=== PATIENT | female | born 1945 | race Caucasian/White ===

== ENCOUNTER 2017-11-19 13:40 | Inpatient (IN) | payer OTHER, MEDICARE ==
[2017-11-19] MEDS ORDERED: MAGNESIUM SULF 50% (8.12 MEQ/2 ML-1 GM VIAL) IVPB ONE (15:06)
[2017-11-19] MEDS ORDERED: SODIUM CHLORIDE 0.9% 1000 ML INFUS.BAG IV ONE (15:06)
[2017-11-19] MEDS ORDERED: METOCLOPRAMIDE HCL INJECTION 10 MG/2 ML VIAL IVPB ONE (15:07)
--- NOTE | 2017-11-19 15:08 | PDOC ---
History of Present Illness - General Chief Complaint: Headache Stated Complaint: ADMIT (PCP SENT) headache Time Seen by Provider: 11/19/17 14:58 Past History - Past Medical History Allergies/Adverse Reactions: Allergies Allergy/AdvReac Type Severity Reaction Status Date / Time Sulfa (Sulfonamide Allergy Verified 11/19/17 13:50 Antibiotics) COPD: No HTN: Yes Hypercholesterolemia: Yes Liver Disease: Yes (pancreatitis s/p endoscopy) Psychiatric Problems: Yes (depression) - Surgical History Abdominal Surgery: Yes (tubal ligation,ovarian cysts) Appendectomy: Yes Cholecystectomy: Yes - Suicide/Smoking/Psychosocial Hx Smoking History: Never smoked Information on smoking cessation initiated: No Hx Alcohol Use: No Drug/Substance Use Hx: No Substance Use Type: None Review of Systems - Review of Systems Comments:: 11/19/17 15:02 GENERAL/CONSTITUTIONAL: No fever or chills. No weakness. HEAD, EYES, EARS, NOSE AND THROAT: No change in vision. No ear pain or discharge. No sore throat. CARDIOVASCULAR: No chest pain or shortness of breath RESPIRATORY: No cough, wheezing, or hemoptysis. GASTROINTESTINAL: No nausea, vomiting, diarrhea or constipation. GENITOURINARY: No dysuria, frequency, or change in urination. MUSCULOSKELETAL: No joint or muscle swelling or pain. No neck or back pain. SKIN: No rash NEUROLOGIC: No headache, vertigo, loss of consciousness, or change in strength/ sensation. ENDOCRINE: No increased thirst. No abnormal weight change HEMATOLOGIC/LYMPHATIC: No anemia, easy bleeding, or history of blood clots. ALLERGIC/IMMUNOLOGIC: No hives or skin allergy. *Physical Exam - Vital Signs Last Vital Signs Temp Pulse Resp BP Pulse Ox 98.5 F 92 H 18 147/120 98 11/19/17 13:45 11/19/17 13:45 11/19/17 13:45 11/19/17 13:45 11/19/17 13:45 - Physical Exam Comments: 11/19/17 15:02 GENERAL: Awake, alert, and fully oriented, in no acute distress HEAD: No signs of trauma, normocephalic, atraumatic EYES: PERRLA, EOMI, sclera anicteric, conjunctiva clear ENT: Auricles normal inspection, hearing grossly normal, nares patent, oropharynx clear without exudates. Moist mucosa NECK: Normal ROM, supple, no lymphadenopathy, JVD, or masses LUNGS: No distress, speaks full sentences, clear to auscultation bilaterally HEART: Regular rate and rhythm, normal S1 and S2, no murmurs, rubs or gallops, peripheral pulses normal and equal bilaterally. ABDOMEN: Soft, nontender, normoactive bowel sounds. No guarding, no rebound. No masses EXTREMITIES : Normal inspection, Normal range of motion, no edema. No clubbing or cyanosis. NEUROLOGICAL: Cranial nerves II through XII grossly intact. Normal speech, normal gait, no focal sensorimotor deficits SKIN: Warm, Dry, normal turgor, no rashes or lesions noted *DC/Admit/Observation/Transfer - Referrals Referrals: Billy Zepeda MD [Primary Care Provider] - - Patient Instructions - Post Discharge Activity
[2017-11-19] MEDS ORDERED: clonazePAM 0.5 MG TABLET PO ONE (15:31)
[2017-11-19] MEDS ORDERED: VALPROATE SODIUM 500 MG/5 ML VIAL IVPB ONE (15:31)
[2017-11-19] MEDS ORDERED: DEXAMETHASONE SOD PHOSPHATE 4 MG/1 ML VIAL IVPUSH ONE (15:31)
[2017-11-19] MEDS ORDERED: traMADol HCL 50 MG TABLET PO ONE (15:31)
--- NOTE | 2017-11-19 15:34 | PDOC ---
History of Present Illness - General History Source: Patient Exam Limitations: No Limitations - History of Present Illness Initial Comments: 11/19/17 15:51 The patient is a 71 year old female with a significant PMH of hemicrania continua who presents to the emergency department with worsening headache sent in for evaluation by Dr. Albarado (neurologist). The patient reports she has been experiencing severe headaches for the past 24 years that are becoming more persistent. The patient states she used to get these frontal headaches with no associated aura about twice a week but notes the headaches is becoming more frequent, and now occur everyday since 10/05/17. The patient was told yesterday to stop taking the tramadol and imitrex for her headaches and had a severe headache this morning that lasted approximately 30 minutes. The patient denies chest pain, shortness of breath and dizziness. Denies fever, chills, nausea, vomit, diarrhea and constipation. Denies dysuria, frequency, urgency and hematuria. Allergies: Sulfa Past surgical history: None reported. Social history: No reported alcohol, drug, or cigarette use. PCP: Dr. Zepeda Neurologist: Dr. Albarado <Suzy Dyson - Last Filed: 11/19/17 16:06> <Lior Weathers - Last Filed: 11/19/17 16:20> - General Chief Complaint: Headache Stated Complaint: ADMIT (PCP SENT) headache Time Seen by Provider: 11/19/17 14:58 Past History <Suzy Dyson - Last Filed: 11/19/17 16:06> - Past Medical History COPD: No HTN: Yes Hypercholesterolemia: Yes Liver Disease: Yes (pancreatitis s/p endoscopy) Psychiatric Problems: Yes (depression) - Surgical History Abdominal Surgery: Yes (tubal ligation,ovarian cysts) Appendectomy: Yes Cholecystectomy: Yes - Suicide/Smoking/Psychosocial Hx Smoking History: Never smoked Information on smoking cessation initiated: No Hx Alcohol Use: No Drug/Substance Use Hx: No Substance Use Type: None <Lior Weathers - Last Filed: 11/19/17 16:20> - Past Medical History Allergies/Adverse Reactions: Allergies Allergy/AdvReac Type Severity Reaction Status Date / Time Sulfa (Sulfonamide Allergy Verified 11/19/17 13:50 Antibiotics) Review of Systems - Review of Systems Able to Perform ROS?: Yes Comments:: 11/19/17 15:53 ROS: A complete review of 10 out of 10 review of systems is taken and is negative apart from what is previously mentioned below and in the HPI. <Suzy Dyson - Last Filed: 11/19/17 16:06> *Physical Exam - Vital Signs Last Vital Signs Temp Pulse Resp BP Pulse Ox 98.5 F 92 H 18 147/120 98 11/19/17 13:45 11/19/17 13:45 11/19/17 13:45 11/19/17 13:45 11/19/17 13:45 - Physical Exam Comments: 11/19/17 16:06 Vitals: Triage vital signs reviewed General Appearance: No acute distress, well nourished, well developed Head: Atraumatic Eyes: Pupils equal reactive round, extraocular movement intact Cardiac: Regular rate and rhythm, no murmurs, no rubs, no gallops Lungs: Clear to auscultation bilateral, good air movement bilaterally Abdomen: Soft, nondistended, normal bowel sounds, nontender to palpation Extremities: Full range of motion to all extremities, no cyanosis, clubbing, or edema Skin: Warm and dry, no rashes or lesions, no rash, no petechiae Neuro: AOX3; Cranial Nerves 2-12 grossly intact, Strength intact to all extremities, Sensation intact to all extremities, gait normal Psych: Normal mood, normal affect <Suzy Dyson - Last Filed: 11/19/17 16:06> - Vital Signs Last Vital Signs Temp Pulse Resp BP Pulse Ox 98.5 F 92 H 18 147/120 98 11/19/17 13:45 11/19/17 13:45 11/19/17 13:45 11/19/17 13:45 11/19/17 13:45 <Lior Weathers - Last Filed: 11/19/17 16:20> ED Treatment Course - LABORATORY CBC & Chemistry Diagram: 11/19/17 15:55 11/19/17 15:55 <Lior Weathers - Last Filed: 11/19/17 16:20> Medical Decision Making - Medical Decision Making 11/19/17 15:33 Case discussed with neurology. Patient with hemicrania continuous recommends IV Depacon 500 mg every 8 hours, 4 mg Decadron every 6 hours, 50 mg tramadol twice a day this will need to be tapered, 0.5 mg Klonopin twice a day Patient does not need any imaging her neurologic examination is normal we will admit to Dr. Marcelo for further management <Lior Weathers - Last Filed: 11/19/17 16:20> *DC/Admit/Observation/Transfer - Attestations Scribe Attestion: 11/19/17 16:00 Documentation prepared by Suzy Dyson, acting as resident medical officer for Lior Weathers MD. <Suzy Dyson - Last Filed: 11/19/17 16:06> - Discharge Dispostion Admit: Yes <Lior Weathers - Last Filed: 11/19/17 16:20> Diagnosis at time of Disposition: Headache Qualifiers: Headache type: unspecified Headache chronicity pattern: unspecified pattern Intractability: intractable Qualified Code(s): R51 - Headache - Referrals Referrals: Billy Zepeda MD [Primary Care Provider] - - Patient Instructions - Post Discharge Activity
[2017-11-19 16:19] LABS: BASO % 1.1 % (0-2.0); EOS % 1.6 % (0-4.5); HEMATOCRIT 35.4 % (32.4-45.2); HEMOGLOBIN 12.2 GM/dL (10.7-15.3); LYMPH % 29.6 % (8-40); MCH 29.5 pg (25.7-33.7); MCHC 34.4 g/dl (32.0-36.0); MEAN CELL VOLUME 85.8 fl (80-96); MEAN PLT VOLUME 7.7 fl (7.5-11.1); MONO % 8.6 % (3.8-10.2); NEUT % 59.1 % (42.8-82.8); PLATELET COUNT 292 K/MM3 (134-434); RBC 4.13 M/mm3 (3.60-5.2); RDW 14.3 % (11.6-15.6); WHITE BLOOD COUNT 8.2 K/mm3 (4.0-10.0)
[2017-11-19] MEDS ORDERED: METOCLOPRAMIDE HCL INJECTION 10 MG/2 ML VIAL ONE (16:31)
[2017-11-19] MEDS ORDERED: MAGNESIUM SULF 50% (8.12 MEQ/2 ML-1 GM VIAL) ONE (16:32)
[2017-11-19 16:45] LABS: ALBUMIN 3.7 g/dl (3.4-5.0); ANION GAP 12 (8-16); BILIRUBIN,TOTAL 0.5 mg/dL (0.2-1.0); BLOOD UREA NITROGEN 17 mg/dL (7-18); CALCIUM 8.9 mg/dL (8.5-10.1); CHLORIDE 107 mmol/L (98-107); CO2 24 mmol/L (21-32); CREATININE 0.7 mg/dL (0.55-1.02); GLUCOSE,RANDOM 111 mg/dL (74-106); SGPT/ALT 20 U/L (12-78); SODIUM 143 mmol/L (136-145); TOT PROT 7.7 g/dl (6.4-8.2)
[2017-11-19 16:46] LABS: ALK PHOS 83 U/L (45-117)
[2017-11-19] MEDS ORDERED: traMADol HCL 50 MG TABLET ONE (16:57)
[2017-11-19] MEDS ORDERED: clonazePAM 0.5 MG TABLET ONE (16:58)
[2017-11-19] MEDS ORDERED: DEXAMETHASONE SOD PHOSPHATE 4 MG/1 ML VIAL ONE (17:02)
[2017-11-19 17:04] LABS: POTASSIUM 4.6 mmol/L (3.5-5.1); SGOT/AST 21 U/L (15-37)
--- NOTE | 2017-11-19 17:05 | CON.NEURO ---
Consult - History of Present Illness History of Present Illness: 71 year old female with a significant PMH of hemicrania continua who presents to the emergency department with worsening headache sent in for evaluation by Dr. Albarado (neurologist). The patient reports she has been experiencing severe headaches for the past 24 years that are becoming more persistent. The patient states she used to get these frontal headaches with no associated aura about twice a week but notes the headaches is becoming more frequent, and now occur everyday since 10/05/17. worse last few weeks The patient was told yesterday to stop taking the tramadol and imitrex for her headaches and had a severe headache this morning that lasted approximately 30 minutes. as per PMD may be overusing RX including ATIVAN, The patient denies chest pain, shortness of breath and dizziness. Denies fever, chills, nausea, vomit, diarrhea and constipation. Denies dysuria, frequency, urgency and hematuria. Allergies: Sulfa Past surgical history: None reported. Social history: No reported alcohol, drug, or cigarette use. PCP: Dr. Zepeda - History Source History Provided By: Patient, Medical Record - Alcohol/Substance Use Hx Alcohol Use: No - Smoking History Smoking history: Never smoked Home Medications - Allergies Allergies/Adverse Reactions: Allergies Allergy/AdvReac Type Severity Reaction Status Date / Time Sulfa (Sulfonamide Allergy Verified 11/19/17 13:50 Antibiotics) - Home Medications Home Medications: Ambulatory Orders Indomethacin [Indomethacin ER] 75 mg PO TID 11/19/17 Omeprazole 20 mg PO DAILY 11/19/17 Sertraline HCl 100 mg PO DAILY 11/19/17 Simvastatin 20 mg PO DAILY 11/19/17 Verapamil HCl [Verapamil ER] 240 mg PO DAILY 11/19/17 Physical Exam-Neuro Vital Signs: Vital Signs Temperature 98.5 F 11/19/17 13:45 Pulse Rate 92 H 11/19/17 13:45 Respiratory Rate 18 11/19/17 13:45 Blood Pressure 147/120 11/19/17 13:45 O2 Sat by Pulse Oximetry (%) 98 11/19/17 13:45 Labs: CBC, BMP 11/19/17 15:55 Problem List - Problems (1) Paroxysmal hemicrania, chronic Code(s): G44.049 - CHRONIC PAROXYSMAL HEMICRANIA, NOT INTRACTABLE Assessment/Plan 71 year old female with a significant PMH of hemicrania continua who presents to the emergency department with progressive left sided HILL and medication overuse. start depakene 500BID tramadol 50BID--will taper clonopin 0.25 BID--will taper decadron 4 TID check ESR CRP indomethacin 50TID MRI BRAIN Dr Collins
[2017-11-19] MEDS ORDERED: VALPROATE SODIUM 500 MG/5 ML VIAL ONE (17:39)
[2017-11-19 20:18] VITALS: BMI 34.0
[2017-11-19] MEDS ORDERED: PT OWN MED DRAWER 7, Y5N ONE (21:44)
[2017-11-19] MEDS: ATORVASTATIN CA 10 MG TABLET (FP) PO SCH (21:53)
[2017-11-19] MEDS: clonazePAM 0.5 MG TABLET PO SCH (21:53)
[2017-11-19] MEDS: traMADol HCL 50 MG TABLET PO SCH (21:54)
[2017-11-19] MEDS: DEXAMETHASONE SOD PHOSPHATE 4 MG/1 ML VIAL IVPB SCH (21:55)
[2017-11-19] MEDS ORDERED: INDOMETHACIN 75 MG PO SCH (22:00)
[2017-11-19] MEDS: VALPROATE SODIUM 500 MG/5 ML VIAL IVPB SCH (22:02)
[2017-11-20] MEDS: DEXAMETHASONE SOD PHOSPHATE 4 MG/1 ML VIAL IVPB SCH ×3 (05:29→23:23)
--- NOTE | 2017-11-20 08:45 | HP ---
Admitting History and Physical - Admission Chief Complaint: 71 y.o F was admitted to [facility] due to svere HILL multiple times a day(>20), not responding to outpatient treatments. Seen by Dr Albarado who suspected Hemicrania Continua or Trigeminal autonomic Cephalgia and advised hospitalization for further management. History of Present Illness: HTN Anxiety disorder. 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 Cardiovascular: Yes: HTN Pulmonary: No: Asthma, O2 Dependent, Sleep Apnea Gastrointestinal: Yes: GERD Hepatobiliary: No: Cirrhosis, Cholelithiasis, Cholecystitis, Choledocholithiasis , Hepatitis A, Hepatitis B, Hepatitis C, Other Renal/: No: Renal Failure, Renal Inusuff, BPH, Cancer, Hematuria, Hemodialysis , Neurogenic Bladder, Renal Calculi, UTI, Other Reproductive: Yes: Postmenopausal - Smoking History Smoking history: Never smoked - Alcohol/Substance Use Hx Alcohol Use: No Home Medications - Allergies Allergies/Adverse Reactions: Allergies Allergy/AdvReac Type Severity Reaction Status Date / Time Sulfa (Sulfonamide Allergy Verified 11/20/17 08:58 Antibiotics) - Home Medications Home Medications: Ambulatory Orders Indomethacin [Indomethacin ER] 75 mg PO TID 11/19/17 Omeprazole 20 mg PO DAILY 11/19/17 Sertraline HCl 100 mg PO DAILY 11/19/17 Simvastatin 20 mg PO DAILY 11/19/17 Verapamil HCl [Verapamil ER] 240 mg PO DAILY 11/19/17 Family Disease History - Family Disease History Family History: Unremarkable Family Disease History: Diabetes: Mother, Heart Disease: Mother Review of Systems - Review of Systems Constitutional: reports: No Symptoms. denies: Chills, Diaphoresis, Fever, Lethargy, Loss of Appetite, Malaise, Night Sweats, Unintentional Wgt. Loss, Weakness, Other Eyes: reports: No Symptoms HENT: reports: No Symptoms Cardiovascular: denies: Chest Pain Respiratory: denies: Cough, Exercise Intolerance, Hemoptysis Gastrointestinal: reports: Nausea. denies: Abdominal Pain, Bloating, Constipation, Diarrhea, Rectal Bleeding, Vomiting Genitourinary: denies: Burning, Discharge Breasts: reports: No Symptoms Reported Musculoskeletal: reports: No Symptoms Integumentary: reports: No Symptoms Neurological: reports: Headache (Severe many times a day). denies: Confusion, Seizure, Syncope Hematology/Lymphatic: reports: No Symptoms Psychiatric: reports: Anxiety, Depression, Panic Physical Examination Vital Signs: Vital Signs Temperature 98.8 F 11/20/17 05:54 Pulse Rate 81 11/20/17 05:54 Respiratory Rate 20 11/20/17 05:54 Blood Pressure 134/80 11/20/17 05:54 O2 Sat by Pulse Oximetry (%) 95 11/19/17 19:03 Constitutional: Yes: Anxious, Mild Distress Eyes: Yes: Conjunctiva Clear, EOM Intact HENT: Yes: Atraumatic, Normocephalic Neck: Yes: Supple, Trachea Midline Cardiovascular: Yes: Regular Rate and Rhythm Respiratory: Yes: Regular, CTA Bilaterally Gastrointestinal: Yes: Normal Bowel Sounds, Soft. No: Abdomen, Obese ...Rectal Exam: Yes: Deferred Renal/: No: Anuria Breast(s): Yes: WNL Extremities: No: Calf Tenderness, Cold, Deformity Edema: No Peripheral Pulses WNL: No Integumentary: Yes: WNL Neurological: Yes: Alert, Oriented, Cran Nerves II-XII Intact. No: Aphasia, Asterixis, Ataxia, Babinski positive, Lethargy, Loss of Sensation, Numbness, Paresthesia ...Motor Strength: WNL Psychiatric: Yes: Alert, Oriented, Agitated. No: Suicidal Ideation Labs: CBC, BMP 11/19/17 15:55 11/19/17 15:55
--- NOTE | 2017-11-20 09:04 | HP ---
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 Cardiovascular: Yes: HTN Pulmonary: No: Asthma, O2 Dependent, Sleep Apnea Gastrointestinal: Yes: GERD Hepatobiliary: No: Cirrhosis, Cholelithiasis, Cholecystitis, Choledocholithiasis , Hepatitis A, Hepatitis B, Hepatitis C, Other Renal/: No: Renal Failure, Renal Inusuff, BPH, Cancer, Hematuria, Hemodialysis , Neurogenic Bladder, Renal Calculi, UTI, Other - Smoking History Smoking history: Never smoked - Alcohol/Substance Use Hx Alcohol Use: No Home Medications - Allergies Allergies/Adverse Reactions: Allergies Allergy/AdvReac Type Severity Reaction Status Date / Time Sulfa (Sulfonamide Allergy Verified 11/20/17 08:58 Antibiotics) - Home Medications Home Medications: Ambulatory Orders Indomethacin [Indomethacin ER] 75 mg PO TID 11/19/17 Omeprazole 20 mg PO DAILY 11/19/17 Sertraline HCl 100 mg PO DAILY 11/19/17 Simvastatin 20 mg PO DAILY 11/19/17 Verapamil HCl [Verapamil ER] 240 mg PO DAILY 11/19/17 Family Disease History - Family Disease History Family Disease History: Diabetes: Mother, Heart Disease: Mother Physical Examination Vital Signs: Vital Signs Temperature 98.8 F 11/20/17 05:54 Pulse Rate 81 11/20/17 05:54 Respiratory Rate 20 11/20/17 05:54 Blood Pressure 134/80 11/20/17 05:54 O2 Sat by Pulse Oximetry (%) 95 11/19/17 19:03 Labs: CBC, BMP 11/19/17 15:55 11/19/17 15:55 Problem List - Problems (1) Headache Assessment/Plan: Continue steroids, Indocin Depakote as per Neurology. Taper Tramadol. Code(s): R51 - HEADACHE Qualifiers: Headache type: paroxysmal hemicrania Headache chronicity pattern: unspecified pattern Intractability: intractable Qualified Code(s): G44.031 - Episodic paroxysmal hemicrania, intractable (2) Paroxysmal hemicrania, chronic Assessment/Plan: neurology follow up Code(s): G44.049 - CHRONIC PAROXYSMAL HEMICRANIA, NOT INTRACTABLE (3) HTN (hypertension) Assessment/Plan: PO Maxzide, PO PO Verapamil. Code(s): I10 - ESSENTIAL (PRIMARY) HYPERTENSION Qualifiers: Hypertension type: essential hypertension Qualified Code(s): I10 - Essential (primary) hypertension
[2017-11-20] MEDS ORDERED: PT OWN MED DRAWER 7, Y5N ONE (09:40)
[2017-11-20] MEDS: SERTRALINE HCL 50 MG TABLET (FP) PO SCH (09:42)
[2017-11-20] MEDS: clonazePAM 0.5 MG TABLET PO SCH ×2 (09:42→23:24)
[2017-11-20] MEDS: VERAPAMIL HCL 240 MG E.R. TABLET (FP) PO SCH (09:43)
[2017-11-20] MEDS: traMADol HCL 50 MG TABLET PO SCH ×2 (09:43→23:23)
[2017-11-20] MEDS: VALPROATE SODIUM 500 MG/5 ML VIAL IVPB SCH ×2 (09:45→23:23)
[2017-11-20] MEDS ORDERED: PANTOPRAZOLE 20 MG TABLET (FP) PO SCH (10:00)
[2017-11-20] MEDS ORDERED: ATORVASTATIN CA 20 MG TABLET (FP) PO SCH (10:00)
--- NOTE | 2017-11-20 10:41 | EKG ---
Test Reason : Blood Pressure : / mmHG Vent. Rate : 082 BPM Atrial Rate : 082 BPM P-R Int : 138 ms QRS Dur : 094 ms QT Int : 386 ms P-R-T Axes : 027 001 005 degrees QTc Int : 450 ms NORMAL SINUS RHYTHM NORMAL ECG NO PREVIOUS ECGS AVAILABLE Confirmed by FILIBERTO MICHAUD MD ([id number]) on 11/20/2017 10:40:47 AM Referred By: Confirmed By:FILIBERTO MICHAUD MD
[2017-11-20] MEDS: TRIAMTERENE AND HCTZ - 37.5 MG/25 MG CAPSULE PO SCH (13:51)
--- NOTE | 2017-11-20 17:33 | PN ---
Progress Note (short form) - Note Progress Note: 71 year old female with a significant PMH of hemicrania continua who presents to the emergency department with worsening headache sent in for evaluation by Dr. Albarado (neurologist). The patient reports she has been experiencing severe headaches for the past 24 years that are becoming more persistent. The patient states she used to get these frontal headaches with no associated aura about twice a week but notes the headaches is becoming more frequent, and now occur everyday since 10/05/17. worse last few weeks The patient was told yesterday to stop taking the tramadol and imitrex for her headaches and had a severe headache this morning that lasted approximately 30 minutes. as per PMD may be overusing RX including ATIVAN, -Today pt. reports she was not taking Ativan at home and that she was taking 3- 4 Tramadol tabs daily for her headache for loast several months. -Reports sinc3e admission her headache is less intense 4/10, markedly better than prior to Depacon/Decadron. Tolerating both well, no side effects. Plan: Will cont Depacon/Decadron at current doses, if her HILL intensity is less tomorrow will reduce Decadron to 4mg q8hrs. Will reduce Tramadol to 50mg daily and Klonopin to 0.5mg hs tomorrow too. -Discharge meds- Depakote 500mg bid, Indomethacin 75mg bid prn, Klonopin 0.5mg hs.
[2017-11-20] MEDS: ATORVASTATIN CA 10 MG TABLET (FP) PO SCH (23:23)
[2017-11-21] MEDS: DEXAMETHASONE SOD PHOSPHATE 4 MG/1 ML VIAL IVPB SCH ×3 (07:11→22:07)
[2017-11-21 08:44] LABS: ALBUMIN 3.9 g/dl (3.4-5.0); ALK PHOS 76 U/L (45-117); ANION GAP 8 (8-16); BILIRUBIN,TOTAL 0.5 mg/dL (0.2-1.0); BLOOD UREA NITROGEN 16 mg/dL (7-18); CALCIUM 8.8 mg/dL (8.5-10.1); CHLORIDE 103 mmol/L (98-107); CO2 29 mmol/L (21-32); CREATININE 0.7 mg/dL (0.55-1.02); GLUCOSE,RANDOM 102 mg/dL (74-106); POTASSIUM 4.3 mmol/L (3.5-5.1); SGOT/AST 12 U/L (15-37); SGPT/ALT 18 U/L (12-78); SODIUM 140 mmol/L (136-145); TOT PROT 7.4 g/dl (6.4-8.2)
[2017-11-21] MEDS ORDERED: PT OWN MED DRAWER 7, Y5N ONE ×3 (10:17→21:57)
[2017-11-21] MEDS: PANTOPRAZOLE 40 MG TABLET (FP) PO SCH (10:20)
[2017-11-21] MEDS: VERAPAMIL HCL 240 MG E.R. TABLET (FP) PO SCH (10:20)
[2017-11-21] MEDS: clonazePAM 0.5 MG TABLET PO SCH ×2 (10:21→22:05)
[2017-11-21] MEDS: traMADol HCL 50 MG TABLET PO SCH ×2 (10:21→22:06)
[2017-11-21] MEDS: SERTRALINE HCL 50 MG TABLET (FP) PO SCH (10:21)
[2017-11-21] MEDS: VALPROATE SODIUM 500 MG/5 ML VIAL IVPB SCH ×2 (10:22→22:08)
[2017-11-21] MEDS: TRIAMTERENE AND HCTZ - 37.5 MG/25 MG CAPSULE PO SCH (10:22)
--- NOTE | 2017-11-21 13:36 | PN ---
Progress Note (short form) - Note Progress Note: Medical coverage for Dr. Zepeda Subjective: The patient was seen and examined at the bedside, she reports improvement in her right sided headache. She also reports in the morning when she urinated the urine was hot and burning. F/u UA/urine culture Current Medications Generic Name Dose Route Start Last Admin Trade Name Freq PRN Reason Stop Dose Admin Atorvastatin Calcium 10 mg 11/19/17 22:00 11/20/17 23:23 Lipitor - PO 10 mg HS JUAN Administration Clonazepam 0.25 mg 11/19/17 22:00 11/21/17 10:21 Klonopin - PO 0.25 mg BID JUAN Administration Dexamethasone Sodium Phosphate 4 mg 11/19/17 22:00 11/21/17 07:11 Decadron Injection - IVPB 4 mg TID JUAN Administration Non-Formulary Medication 75 mg 11/19/17 22:00 Indomethacin [Indomethacin Er] PO TID JUAN Pantoprazole Sodium 40 mg 11/21/17 08:38 11/21/17 10:20 Protonix - PO 40 mg DAILY JUAN Administration Sertraline HCl 100 mg 11/20/17 10:00 11/21/17 10:21 Zoloft - PO 100 mg DAILY JUAN Administration Tramadol HCl 50 mg 11/19/17 22:00 11/21/17 10:21 Ultram - PO 50 mg BID JUAN Administration Triamterene/HCTZ 1 cap 11/20/17 10:00 11/21/17 10:22 Dyazide 25/37.5mg PO 1 cap DAILY JUAN Administration Valproate Sodium 500 mg 11/19/17 22:00 11/21/17 10:22 Depacon Injection - IVPB 500 mg BID JUAN Administration Verapamil HCl 240 mg 11/20/17 10:00 11/21/17 10:20 Calan Sr - PO 240 mg DAILY JUAN Administration Objective: Vital Signs Period Temp Pulse Resp BP Sys/Abrams Pulse Ox Last 24 Hr 97.2 F-98 F 72-100 18-20 143-152/72-87 95 Physical Exam: General: NAD, A&Ox3 Neuro: No focal deficits Ext: B/l lower extremities trace edema CBCD WBC 8.2 K/mm3 (4.0-10.0) 11/19/17 15:55 RBC 4.13 M/mm3 (3.60-5.2) 11/19/17 15:55 Hgb 12.2 GM/dL (10.7-15.3) 11/19/17 15:55 Hct 35.4 % (32.4-45.2) 11/19/17 15:55 MCV 85.8 fl (80-96) 11/19/17 15:55 MCHC 34.4 g/dl (32.0-36.0) 11/19/17 15:55 RDW 14.3 % (11.6-15.6) 11/19/17 15:55 Plt Count 292 K/MM3 (134-434) 11/19/17 15:55 MPV 7.7 fl (7.5-11.1) 11/19/17 15:55 CMP Sodium 140 mmol/L (136-145) 11/21/17 07:00 Potassium 4.3 mmol/L (3.5-5.1) 11/21/17 07:00 Chloride 103 mmol/L (98-107) 11/21/17 07:00 Carbon Dioxide 29 mmol/L (21-32) 11/21/17 07:00 Anion Gap 8 (8-16) 11/21/17 07:00 BUN 16 mg/dL (7-18) 11/21/17 07:00 Creatinine 0.7 mg/dL (0.55-1.02) 11/21/17 07:00 Creat Clearance w eGFR > 60 (>60) 11/21/17 07:00 Random Glucose 102 mg/dL (74-106) 11/21/17 07:00 Calcium 8.8 mg/dL (8.5-10.1) 11/21/17 07:00 Total Bilirubin 0.5 mg/dL (0.2-1.0) 11/21/17 07:00 AST 12 U/L (15-37) L 11/21/17 07:00 ALT 18 U/L (12-78) 11/21/17 07:00 Alkaline Phosphatase 76 U/L (45-117) 11/21/17 07:00 Total Protein 7.4 g/dl (6.4-8.2) 11/21/17 07:00 Albumin 3.9 g/dl (3.4-5.0) 11/21/17 07:00 Assessment: This is a 71 year old female with PMHx of anxiety, HTN, GERD, chronic headaches who presented to the ED with severe headache Plan: 1) Severe headache - Decadron 4mg IVPB tid - Tramadol 50mg po bid - Klonopin 0.25mg po bid - Valproate 500mg IVPB bid - Continue Indomethacin - MRI brain with no evidence of acute or subacute infarction, extra axial collection or intra axial hemorrhage. Few punctate foci in the subcortical cerebral white matter unchanged from prior exam - Appreciate neuro consult 2) Dysuria - F/u UA, urine culture 3) Anxiety - continue Zoloft - Klonopin as above 4) HTN - Continue Dyazide - Continue Verapamil 5) F/E/N: - Monitor electrolytes - Sodium controlled diet 6) Prophylaxis: - OOB ambulating - SCDs bilaterally 7) Dispo: - Requires continued inpatient care CODE STATUS: FULL CODE Visit type - Emergency Visit Emergency Visit: Yes ED Registration Date: 11/19/17 Care time: The patient presented to the Emergency Department on the above date and was hospitalized for further evaluation of their emergent condition. - New Patient This patient is new to me today: Yes Date on this admission: 11/21/17 - Critical Care Critical Care patient: No
[2017-11-21 15:03] LABS: URINE APPEARANCE CLEAR; URINE BILIRUBIN NEGATIVE (NEGATIVE); URINE BLOOD NEGATIVE (NEGATIVE); URINE COLOR LTYELLOW; URINE GLUCOSE (UA) NEGATIVE (NEGATIVE); URINE KETONE TRACE (NEGATIVE); URINE LEUK ESTERASE NEGATIVE (NEGATIVE); URINE NITRITE NEGATIVE (NEGATIVE); URINE PROTEIN NEGATIVE (NEGATIVE); URINE UROBILINOGEN NEGATIVE mg/dL (0.2-1.0)
--- NOTE | 2017-11-21 17:00 | PN ---
Progress Note (short form) - Note Progress Note: 71 year old female with a significant PMH of hemicrania continua who presents to the emergency department with worsening headache sent in for evaluation by Dr. Albarado (neurologist). The patient reports she has been experiencing severe headaches for the past 24 years that are becoming more persistent. The patient states she used to get these frontal headaches with no associated aura about twice a week but notes the headaches is becoming more frequent, and now occur everyday since 10/05/17. worse last few weeks The patient was told yesterday to stop taking the tramadol and imitrex for her headaches and had a severe headache this morning that lasted approximately 30 minutes. as per PMD may be overusing RX including ATIVAN, -Today pt. reports she was not taking Ativan at home and that she was taking 3- 4 Tramadol tabs daily for her headache for loast several months. -Reports sinc3e admission her headache is less intense 4/10, markedly better than prior to Depacon/Decadron. Tolerating both well, no side effects. Plan: Will cont Depacon/Decadron but Decadron at 4mg q8hrs. Will reduce Tramadol to 50mg daily and Klonopin to 0.5mg hs tonight as well. -Discharge meds- Depakote 500mg bid, Indomethacin 75mg bid prn, Klonopin 0.5mg hs.
[2017-11-21] MEDS: ATORVASTATIN CA 10 MG TABLET (FP) PO SCH (22:07)
[2017-11-22] MEDS: DEXAMETHASONE SOD PHOSPHATE 4 MG/1 ML VIAL IVPB SCH ×3 (06:22→22:26)
--- NOTE | 2017-11-22 10:02 | PN ---
Progress Note (short form) - Note Progress Note: Medical coverage for Dr. Zepeda Subjective: The patient was seen and examined at the bedside, she reports feeling better today. She was observed walking around her room. She has no complaints at this time Current Medications Generic Name Dose Route Start Last Admin Trade Name Edwar PRN Reason Stop Dose Admin Atorvastatin Calcium 10 mg 11/19/17 22:00 11/21/17 22:07 Lipitor - PO 10 mg HS JUAN Administration Clonazepam 0.25 mg 11/19/17 22:00 11/21/17 22:05 Klonopin - PO 0.25 mg BID JUAN Administration Dexamethasone Sodium Phosphate 4 mg 11/19/17 22:00 11/22/17 06:22 Decadron Injection - IVPB 4 mg TID JUAN Administration Docusate Sodium 100 mg 11/22/17 08:34 Colace - PO Q8H PRN CONSTIPATION Pantoprazole Sodium 40 mg 11/21/17 08:38 11/21/17 10:20 Protonix - PO 40 mg DAILY JUAN Administration Sertraline HCl 100 mg 11/20/17 10:00 11/21/17 10:21 Zoloft - PO 100 mg DAILY JUAN Administration Tramadol HCl 50 mg 11/19/17 22:00 11/21/17 22:06 Ultram - PO 50 mg BID JUAN Administration Triamterene/HCTZ 1 cap 11/20/17 10:00 11/21/17 10:22 Dyazide 25/37.5mg PO 1 cap DAILY JUAN Administration Valproate Sodium 500 mg 11/19/17 22:00 11/21/17 22:08 Depacon Injection - IVPB 500 mg BID JUAN Administration Verapamil HCl 240 mg 11/20/17 10:00 11/21/17 10:20 Calan Sr - PO 240 mg DAILY JUAN Administration Objective: Vital Signs Period Temp Pulse Resp BP Sys/Abrams Pulse Ox Last 24 Hr 97.2 F-99.1 F 65-88 18-20 135-150/81-92 95 Physical Exam: General: NAD, A&Ox3 Neuro: No focal deficits Ext: B/l lower extremities trace edema CBCD WBC 8.2 K/mm3 (4.0-10.0) 11/19/17 15:55 RBC 4.13 M/mm3 (3.60-5.2) 11/19/17 15:55 Hgb 12.2 GM/dL (10.7-15.3) 11/19/17 15:55 Hct 35.4 % (32.4-45.2) 11/19/17 15:55 MCV 85.8 fl (80-96) 11/19/17 15:55 MCHC 34.4 g/dl (32.0-36.0) 11/19/17 15:55 RDW 14.3 % (11.6-15.6) 11/19/17 15:55 Plt Count 292 K/MM3 (134-434) 11/19/17 15:55 MPV 7.7 fl (7.5-11.1) 11/19/17 15:55 CMP Sodium 140 mmol/L (136-145) 11/21/17 07:00 Potassium 4.3 mmol/L (3.5-5.1) 11/21/17 07:00 Chloride 103 mmol/L (98-107) 11/21/17 07:00 Carbon Dioxide 29 mmol/L (21-32) 11/21/17 07:00 Anion Gap 8 (8-16) 11/21/17 07:00 BUN 16 mg/dL (7-18) 11/21/17 07:00 Creatinine 0.7 mg/dL (0.55-1.02) 11/21/17 07:00 Creat Clearance w eGFR > 60 (>60) 11/21/17 07:00 Random Glucose 102 mg/dL (74-106) 11/21/17 07:00 Calcium 8.8 mg/dL (8.5-10.1) 11/21/17 07:00 Total Bilirubin 0.5 mg/dL (0.2-1.0) 11/21/17 07:00 AST 12 U/L (15-37) L 11/21/17 07:00 ALT 18 U/L (12-78) 11/21/17 07:00 Alkaline Phosphatase 76 U/L (45-117) 11/21/17 07:00 Total Protein 7.4 g/dl (6.4-8.2) 11/21/17 07:00 Albumin 3.9 g/dl (3.4-5.0) 11/21/17 07:00 Assessment: This is a 71 year old female with PMHx of anxiety, HTN, GERD, chronic headaches who presented to the ED with severe headache Plan: 1) Severe headache - Decadron 4mg IVPB tid - Tramadol changed to 50mg po daily - Klonopin changed to 0.5mg po hs - Valproate 500mg IVPB bid - Continue Indomethacin - MRI brain with no evidence of acute or subacute infarction, extra axial collection or intra axial hemorrhage. Few punctate foci in the subcortical cerebral white matter unchanged from prior exam - Appreciate neuro consult 2) Dysuria - UA negative 3) Anxiety - continue Zoloft - Klonopin as above 4) HTN - Continue Dyazide - Continue Verapamil 5) F/E/N: - Monitor electrolytes - Sodium controlled diet 6) Prophylaxis: - OOB ambulating - SCDs bilaterally 7) Dispo: - Requires continued inpatient care CODE STATUS: FULL CODE Visit type - Emergency Visit Emergency Visit: Yes ED Registration Date: 11/19/17 Care time: The patient presented to the Emergency Department on the above date and was hospitalized for further evaluation of their emergent condition. - New Patient This patient is new to me today: No - Critical Care Critical Care patient: No
[2017-11-22] MEDS: SERTRALINE HCL 50 MG TABLET (FP) PO SCH (10:14)
[2017-11-22] MEDS: TRIAMTERENE AND HCTZ - 37.5 MG/25 MG CAPSULE PO SCH (10:14)
[2017-11-22] MEDS: VALPROATE SODIUM 500 MG/5 ML VIAL IVPB SCH ×2 (10:15→22:27)
[2017-11-22] MEDS: PANTOPRAZOLE 40 MG TABLET (FP) PO SCH (10:15)
[2017-11-22] MEDS: VERAPAMIL HCL 240 MG E.R. TABLET (FP) PO SCH (10:15)
[2017-11-22] MEDS: traMADol HCL 50 MG TABLET PO SCH (10:18)
[2017-11-22] MEDS: clonazePAM 0.5 MG TABLET PO SCH ×2 (10:18→22:26)
[2017-11-22] MEDS ORDERED: traMADol HCL 50 MG TABLET PO ONE (13:45)
[2017-11-22] MEDS: DOCUSATE SODIUM 100 MG CAPSULE (FP) PO PRN ×2 (14:18→22:34)
--- NOTE | 2017-11-22 17:04 | PN ---
Progress Note, Physician Chief Complaint: headache History of Present Illness: 71 year old woman with headache history dating back to age 55 when she went through menopause. She was having about 3-4 headache days per month, associated with a visual aura, always, right frontal, sharp pain, lasting 3 days (if she didn't medicate), and always responsive to sumatriptan, and associated with photophobia, phonophobia, nausea. She fell and although she didn't lose consciousness or become dazed, she had some neck pain, and after that had an increase in her headache pain and neck pain and ended up seeing pain management with massive increase in medication for a while. This was at age 58. After the fall, she was found to have some disc disease in her neck, and the headache pain also radiating forward to the same spot on her forehead from her neck. For a while she struggled with this and over medication, but by the time she moved from [place], in 2005 she had somehow gone from near daily headaches to occasional headaches again. She was taking daily Tramadol, about 4 per day, and was getting about 4 headache days per month, but taking the tramadol for her neck pain. In late September 2017 she noticed a sudden increase in headache frequency such that the headaches became daily for the latter part of the month,and over the last few weeks they have been daily without break. She also notes that her right eyelid droops during the headache. Since hospitalization her headache has dropped to a dull ache, but a constant 3/ 10. - Current Medication List Current Medications: Active Medications Atorvastatin Calcium (Lipitor -) 10 mg PO HS [facility] Last Admin: 11/21/17 22:07 Dose: 10 mg Clonazepam (Klonopin -) 0.5 mg PO HS [facility] Dexamethasone Sodium Phosphate (Decadron Injection -) 4 mg IVPB TID [facility] Last Admin: 11/22/17 14:17 Dose: 4 mg Docusate Sodium (Colace -) 100 mg PO Q8H PRN PRN Reason: CONSTIPATION Last Admin: 11/22/17 14:18 Dose: 100 mg Pantoprazole Sodium (Protonix -) 40 mg PO DAILY [facility] Last Admin: 11/22/17 10:15 Dose: 40 mg Sertraline HCl (Zoloft -) 100 mg PO DAILY [facility] Last Admin: 11/22/17 10:14 Dose: 100 mg Tramadol HCl (Ultram -) 50 mg PO DAILY [facility] Triamterene/HCTZ (Dyazide 25/37.5mg) 1 cap PO DAILY [facility] Last Admin: 11/22/17 10:14 Dose: 1 cap Valproate Sodium (Depacon Injection -) 500 mg IVPB BID [facility] Last Admin: 11/22/17 10:15 Dose: 500 mg Verapamil HCl (Calan Sr -) 240 mg PO DAILY [facility] Last Admin: 11/22/17 10:15 Dose: 240 mg - Objective Vital Signs: Vital Signs Temperature 98.4 F 11/22/17 14:15 Pulse Rate 60 11/22/17 14:15 Respiratory Rate 16 11/22/17 14:15 Blood Pressure 120/80 11/22/17 14:15 O2 Sat by Pulse Oximetry (%) 96 11/22/17 09:00 Neurological: Yes: WNL, Alert, Oriented, Cran Nerves II-XII Intact ...Motor Strength: WNL Labs: CBC, BMP 11/19/17 15:55 11/21/17 07:00 Problem List - Problems (1) Chronic migraine without aura, intractable, with status migrainosus Code(s): G43.711 - CHRONIC MIGRAINE W/O AURA, INTRACTABLE, W STATUS MIGRAINOSUS (2) Migraine with aura Code(s): G43.109 - MIGRAINE WITH AURA, NOT INTRACTABLE, W/O STATUS MIGRAINOSUS Assessment/Plan Upon talking with Ms. Romero, I don't think that this is a trigeminal autonomic cephalgia or hemicrania continua and I would continue to treat her for chronic migraine. I will review her case with Dr. Albarado tomorrow. I'll discontinue her Tramadol at this point.
[2017-11-22] MEDS: ATORVASTATIN CA 10 MG TABLET (FP) PO SCH (22:26)
[2017-11-23] MEDS: DEXAMETHASONE SOD PHOSPHATE 4 MG/1 ML VIAL IVPB SCH ×3 (06:31→22:22)
--- NOTE | 2017-11-23 07:37 | PN ---
Progress Note (short form) - Note Progress Note: Neurology consult follow up appreciated. More headache with nausea today, especially behind the right eye. Constipated. Vital Signs Temp 98.1 F 11/23/17 06:00 Pulse 68 11/23/17 06:00 Resp 20 11/23/17 06:00 BP 127/67 11/23/17 06:00 Pulse Ox 96 11/22/17 21:00 Intake & Output 11/22/17 11/22/17 11/23/17 11:59 23:59 11:59 Intake Total 100 120 Balance 100 120 Weight 187 lb 8 oz 187 lb Intake: IV 20 saline lock 20 IVPB 100 100 Other: Voiding Method Toilet Toilet # Unmeasured Voids Void 2 Bowel Movement No Weight Measurement Method Built in Bedscale Built in Bedscale PE ambulates in the room. Neck-supple right neck pain. Lungs are clear. Heart S1S2 regular Abdomen soft, NT Ext-No CCE Current Active Problems Problem Status Onset Chronic migraine without aura, intractable, with status migrainosus Acute HTN (hypertension) Acute Headache Acute Migraine with aura Acute Paroxysmal hemicrania, chronic Acute Plan Continue IV steroids Neuro f/u resevere HAPO laxatives Problem List - Problems (1) Headache Code(s): R51 - HEADACHE Qualifiers: Headache type: paroxysmal hemicrania Headache chronicity pattern: unspecified pattern Intractability: intractable Qualified Code(s): G44.031 - Episodic paroxysmal hemicrania, intractable (2) Paroxysmal hemicrania, chronic Code(s): G44.049 - CHRONIC PAROXYSMAL HEMICRANIA, NOT INTRACTABLE (3) HTN (hypertension) Code(s): I10 - ESSENTIAL (PRIMARY) HYPERTENSION Qualifiers: Hypertension type: essential hypertension Qualified Code(s): I10 - Essential (primary) hypertension
[2017-11-23] MEDS ORDERED: MAGNESIUM CITRATE 300 ML BOTTLE PO ONE (09:00)
[2017-11-23] MEDS ORDERED: BISACODYL 5 MG TABLET.DR (FP) PO ONE (09:00)
[2017-11-23] MEDS ORDERED: PT OWN MED DRAWER 7, Y5N ONE ×2 (09:32→10:42)
[2017-11-23] MEDS: TRIAMTERENE AND HCTZ - 37.5 MG/25 MG CAPSULE PO SCH (09:34)
[2017-11-23] MEDS: SERTRALINE HCL 50 MG TABLET (FP) PO SCH (09:34)
[2017-11-23] MEDS: VERAPAMIL HCL 240 MG E.R. TABLET (FP) PO SCH (09:34)
[2017-11-23] MEDS: PANTOPRAZOLE 40 MG TABLET (FP) PO SCH (09:34)
[2017-11-23] MEDS: POLYETHYLENE GLYCOL 3350 119 GM BTL PO SCH ×2 (09:38→22:21)
[2017-11-23] MEDS ORDERED: MAGNESIUM 1GM/D5W - 1 GM/100 ML IVPB IVPB ONE (10:00)
[2017-11-23] MEDS ORDERED: traMADol HCL 50 MG TABLET PO SCH (10:00)
[2017-11-23] MEDS: VALPROATE SODIUM 500 MG/5 ML VIAL IVPB SCH ×2 (10:46→22:35)
[2017-11-23] MEDS ORDERED: HYDROCORTISONE ACETATE 25 MG/SUPP.RECT RC ONE (13:30)
[2017-11-23] MEDS: ATORVASTATIN CA 10 MG TABLET (FP) PO SCH (22:21)
[2017-11-23] MEDS: clonazePAM 0.5 MG TABLET PO SCH (22:21)
[2017-11-23] MEDS: HYDROCORTISONE ACETATE 25 MG/SUPP.RECT RC SCH (22:22)
[2017-11-24] MEDS: DEXAMETHASONE SOD PHOSPHATE 4 MG/1 ML VIAL IVPB SCH ×3 (06:35→21:44)
--- NOTE | 2017-11-24 09:22 | PN ---
Progress Note, Physician Chief Complaint: headache History of Present Illness: 71 year old woman with headache history dating back to age 55 when she went through menopause. She was having about 3-4 headache days per month, associated with a visual aura, always, right frontal, sharp pain, lasting 3 days (if she didn't medicate), and always responsive to sumatriptan, and associated with photophobia, phonophobia, nausea. She fell and although she didn't lose consciousness or become dazed, she had some neck pain, and after that had an increase in her headache pain and neck pain and ended up seeing pain management with massive increase in medication for a while. This was at age 58. After the fall, she was found to have some disc disease in her neck, and the headache pain also radiating forward to the same spot on her forehead from her neck. For a while she struggled with this and over medication, but by the time she moved from [place], in 2005 she had somehow gone from near daily headaches to occasional headaches again. She was taking daily Tramadol, about 4 per day, and was getting about 4 headache days per month, but taking the tramadol for her neck pain. In late September 2017 she noticed a sudden increase in headache frequency such that the headaches became daily for the latter part of the month,and over the last few weeks they have been daily without break. She also notes that her right eyelid droops during the headache. Since hospitalization her headache has dropped to a dull ache, but a constant 3/ 10. She had aggravation of the headache both yesterday am and this am to 8-9/ 10. Yesterday, magnesium 1 gram infusion brought headache from 6 to a 4 and was well tolerated. Today, I'll give her 2 grams. - Current Medication List Current Medications: Active Medications Atorvastatin Calcium (Lipitor -) 10 mg PO HS [facility] Last Admin: 11/23/17 22:21 Dose: 10 mg Clonazepam (Klonopin -) 0.5 mg PO HS [facility] Last Admin: 11/23/17 22:21 Dose: 0.5 mg Dexamethasone Sodium Phosphate (Decadron Injection -) 4 mg IVPB TID [facility] Last Admin: 11/24/17 06:35 Dose: 4 mg Docusate Sodium (Colace -) 100 mg PO Q8H PRN PRN Reason: CONSTIPATION Last Admin: 11/22/17 22:34 Dose: 100 mg Hydrocortisone Acetate (Anusol Hc Suppository -) 25 mg RC HS [facility] Last Admin: 11/23/17 22:22 Dose: 25 mg Pantoprazole Sodium (Protonix -) 40 mg PO DAILY [facility] Last Admin: 11/23/17 09:34 Dose: 40 mg Polyethylene Glycol (Miralax (For Daily Use) -) 17 gm PO BID [facility] Last Admin: 11/23/17 22:21 Dose: Not Given Sertraline HCl (Zoloft -) 100 mg PO DAILY [facility] Last Admin: 11/23/17 09:34 Dose: 100 mg Triamterene/HCTZ (Dyazide 25/37.5mg) 1 cap PO DAILY [facility] Last Admin: 11/23/17 09:34 Dose: 1 cap Valproate Sodium (Depacon Injection -) 500 mg IVPB BID [facility] Last Admin: 11/23/17 22:35 Dose: 500 mg Verapamil HCl (Calan Sr -) 240 mg PO DAILY [facility] Last Admin: 11/23/17 09:34 Dose: 240 mg - Objective Vital Signs: Vital Signs Temperature 98.3 F 11/24/17 06:00 Pulse Rate 77 11/24/17 06:00 Respiratory Rate 20 11/24/17 06:00 Blood Pressure 145/86 11/24/17 06:00 O2 Sat by Pulse Oximetry (%) 98 11/23/17 09:00 Neurological: Yes: WNL Labs: CBC, BMP 11/19/17 15:55 11/21/17 07:00 Problem List - Problems (1) Chronic migraine without aura, intractable, with status migrainosus Code(s): G43.711 - CHRONIC MIGRAINE W/O AURA, INTRACTABLE, W STATUS MIGRAINOSUS (2) Migraine with aura Code(s): G43.109 - MIGRAINE WITH AURA, NOT INTRACTABLE, W/O STATUS MIGRAINOSUS Assessment/Plan Upon talking with Ms. Romero, I don't think that this is a trigeminal autonomic cephalgia or hemicrania continua and I would continue to treat her for chronic migraine. Tramadol discontinued. She is now on tapering dose of decadron and depacon. She had positive response to magnesium yesterday, and I'll repeat dose this AM. Unfortunately given the severe headache this Am, she requires ongoing inpatient Intravenous medication to avoid decompensation upon discharge.
[2017-11-24] MEDS ORDERED: PT OWN MED DRAWER 7, Y5N ONE ×2 (09:26→20:29)
[2017-11-24] MEDS ORDERED: MAGNESIUM SULFATE IN WATER 2 GM/50 ML IVPB IVPB ONE (09:30)
[2017-11-24] MEDS: VERAPAMIL HCL 240 MG E.R. TABLET (FP) PO SCH (09:59)
[2017-11-24] MEDS: TRIAMTERENE AND HCTZ - 37.5 MG/25 MG CAPSULE PO SCH (10:00)
[2017-11-24] MEDS: PANTOPRAZOLE 40 MG TABLET (FP) PO SCH (10:00)
[2017-11-24] MEDS: SERTRALINE HCL 50 MG TABLET (FP) PO SCH (10:00)
[2017-11-24] MEDS: VALPROATE SODIUM 500 MG/5 ML VIAL IVPB SCH ×2 (10:00→21:44)
[2017-11-24] MEDS: POLYETHYLENE GLYCOL 3350 119 GM BTL PO SCH ×2 (10:00→22:50)
--- NOTE | 2017-11-24 13:03 | PN ---
Progress Note, Physician Chief Complaint: Severe HILL last night and previous nigt with nausea, dry heaves. History of Present Illness: HTN Anxiety disorder. GERD Chronic HILL - Current Medication List Current Medications: Active Medications Atorvastatin Calcium (Lipitor -) 10 mg PO HS [facility] Last Admin: 11/23/17 22:21 Dose: 10 mg Clonazepam (Klonopin -) 0.5 mg PO [facility] Last Admin: 11/23/17 22:21 Dose: 0.5 mg Dexamethasone Sodium Phosphate (Decadron Injection -) 4 mg IVPB BID [facility] Last Admin: 11/24/17 10:00 Dose: 4 mg Docusate Sodium (Colace -) 100 mg PO Q8H PRN PRN Reason: CONSTIPATION Last Admin: 11/22/17 22:34 Dose: 100 mg Hydrocortisone Acetate (Anusol Hc Suppository -) 25 mg RC [facility] Last Admin: 11/23/17 22:22 Dose: 25 mg Pantoprazole Sodium (Protonix -) 40 mg PO DAILY [facility] Last Admin: 11/24/17 10:00 Dose: 40 mg Polyethylene Glycol (Miralax (For Daily Use) -) 17 gm PO BID [facility] Last Admin: 11/24/17 10:00 Dose: Not Given Sertraline HCl (Zoloft -) 100 mg PO DAILY [facility] Last Admin: 11/24/17 10:00 Dose: 100 mg Triamterene/HCTZ (Dyazide 25/37.5mg) 1 cap PO DAILY [facility] Last Admin: 11/24/17 10:00 Dose: 1 cap Valproate Sodium (Depacon Injection -) 500 mg IVPB BID [facility] Last Admin: 11/24/17 10:00 Dose: 500 mg Verapamil HCl (Calan Sr -) 240 mg PO DAILY [facility] Last Admin: 11/24/17 09:59 Dose: 240 mg - Objective Vital Signs: Vital Signs Temperature 98.3 F 11/24/17 06:00 Pulse Rate 77 11/24/17 06:00 Respiratory Rate 20 11/24/17 06:00 Blood Pressure 145/86 11/24/17 06:00 O2 Sat by Pulse Oximetry (%) 98 11/23/17 09:00 Constitutional: Yes: Anxious, Moderate Distress. No: Cachectic, Pallor, Poor Hygeine, Thin Eyes: Yes: Conjunctiva Clear, EOM Intact HENT: Yes: Atraumatic, Normocephalic Neck: Yes: Supple, Trachea Midline Cardiovascular: Yes: Regular Rate and Rhythm, S1, S2. No: Bradycardia, Tachycardia, JVD, Gallop, Murmur Respiratory: Yes: Regular, CTA Bilaterally. No: Accessory Muscle Use Gastrointestinal: Yes: Normal Bowel Sounds, Soft, Abdomen, Obese, Hemorrhoids, Rectal Bleeding (Hemorrhoids) ...Rectal Exam: Yes: Deferred Genitourinary: No: Anuria, Bladder Distention, CVA Tenderness - Left, CVA Tenderness - Right Breast(s): Yes: WNL Musculoskeletal: Yes: WNL Extremities: Yes: WNL Edema: No Peripheral Pulses WNL: Yes Integumentary: Yes: WNL Neurological: Yes: Alert, Oriented. No: Aphasia ...Motor Strength: WNL Psychiatric: Yes: Alert, Oriented. No: Agitated, Suicidal Ideation Labs: CBC, BMP 11/19/17 15:55 11/21/17 07:00 Problem List - Problems (1) Headache Code(s): R51 - HEADACHE Qualifiers: Headache type: paroxysmal hemicrania Headache chronicity pattern: unspecified pattern Intractability: intractable Qualified Code(s): G44.031 - Episodic paroxysmal hemicrania, intractable (2) HTN (hypertension) Code(s): I10 - ESSENTIAL (PRIMARY) HYPERTENSION Qualifiers: Hypertension type: essential hypertension Qualified Code(s): I10 - Essential (primary) hypertension (3) Chronic migraine without aura, intractable, with status migrainosus Assessment/Plan: Continue IV steroids, Magnesioum IV Neurology follow up Code(s): G43.711 - CHRONIC MIGRAINE W/O AURA, INTRACTABLE, W STATUS MIGRAINOSUS
[2017-11-24] MEDS: clonazePAM 0.5 MG TABLET PO SCH (22:49)
[2017-11-24] MEDS: ATORVASTATIN CA 10 MG TABLET (FP) PO SCH (22:50)
[2017-11-24] MEDS: HYDROCORTISONE ACETATE 25 MG/SUPP.RECT RC SCH (22:50)
[2017-11-25] MEDS ORDERED: ACETAMINOPHEN 325 MG TABLET (FP) PO PRN (05:48)
[2017-11-25] MEDS: DEXAMETHASONE SOD PHOSPHATE 4 MG/1 ML VIAL IVPB SCH ×2 (10:07→22:15)
[2017-11-25] MEDS: VERAPAMIL HCL 240 MG E.R. TABLET (FP) PO SCH (10:07)
[2017-11-25] MEDS: POLYETHYLENE GLYCOL 3350 119 GM BTL PO SCH ×2 (10:08→22:15)
[2017-11-25] MEDS: TRIAMTERENE AND HCTZ - 37.5 MG/25 MG CAPSULE PO SCH (10:08)
[2017-11-25] MEDS: VALPROATE SODIUM 500 MG/5 ML VIAL IVPB SCH ×2 (10:08→22:15)
[2017-11-25] MEDS: PANTOPRAZOLE 40 MG TABLET (FP) PO SCH (10:08)
[2017-11-25] MEDS: SERTRALINE HCL 50 MG TABLET (FP) PO SCH (10:09)
--- NOTE | 2017-11-25 11:18 | PN ---
Progress Note (short form) - Note Progress Note: 71 year old woman with headache history dating back to age 55 when she went through menopause. She was having about 3-4 headache days per month, associated with a visual aura, always, right frontal, sharp pain, lasting 3 days (if she didn't medicate), and always responsive to sumatriptan, and associated with photophobia, phonophobia, nausea. She fell and although she didn't lose consciousness or become dazed, she had some neck pain, and after that had an increase in her headache pain and neck pain and ended up seeing pain management with massive increase in medication for a while. This was at age 58. After the fall, she was found to have some disc disease in her neck, and the headache pain also radiating forward to the same spot on her forehead from her neck. For a while she struggled with this and over medication, but by the time she moved from [place], in 2005 she had somehow gone from near daily headaches to occasional headaches again. She was taking daily Tramadol, about 4 per day, and was getting about 4 headache days per month, but taking the tramadol for her neck pain. In late September 2017 she noticed a sudden increase in headache frequency such that the headaches became daily for the latter part of the month,and over the last few weeks they have been daily without break. She also notes that her right eyelid droops during the headache. Since hospitalization her headache has dropped to a dull ache, but a constant 3/ 10. She had aggravation of the headache both yesterday am and this am to 8-9/ 10. Yesterday, magnesium 1 gram infusion brought headache from 6 to a 4 and was well tolerated. FU : feels HILL every in AM, 4 AM-5AM; feels magnesium helps, though states uncomfortable, though she looks stable. - Current Medication List Current Medications: Active Medications Atorvastatin Calcium (Lipitor -) 10 mg PO [facility] Last Admin: 11/23/17 22:21 Dose: 10 mg Clonazepam (Klonopin -) 0.5 mg PO HS [facility] Last Admin: 11/23/17 22:21 Dose: 0.5 mg Dexamethasone Sodium Phosphate (Decadron Injection -) 4 mg IVPB TID [facility] Last Admin: 11/24/17 06:35 Dose: 4 mg Docusate Sodium (Colace -) 100 mg PO Q8H PRN PRN Reason: CONSTIPATION Last Admin: 11/22/17 22:34 Dose: 100 mg Hydrocortisone Acetate (Anusol Hc Suppository -) 25 mg RC HS [facility] Last Admin: 11/23/17 22:22 Dose: 25 mg Pantoprazole Sodium (Protonix -) 40 mg PO DAILY [facility] Last Admin: 11/23/17 09:34 Dose: 40 mg Polyethylene Glycol (Miralax (For Daily Use) -) 17 gm PO BID [facility] Last Admin: 11/23/17 22:21 Dose: Not Given Sertraline HCl (Zoloft -) 100 mg PO DAILY [facility] Last Admin: 11/23/17 09:34 Dose: 100 mg Triamterene/HCTZ (Dyazide 25/37.5mg) 1 cap PO DAILY [facility] Last Admin: 11/23/17 09:34 Dose: 1 cap Valproate Sodium (Depacon Injection -) 500 mg IVPB BID [facility] Last Admin: 11/23/17 22:35 Dose: 500 mg Verapamil HCl (Calan Sr -) 240 mg PO DAILY [facility] Last Admin: 11/23/17 09:34 Dose: 240 mg - Objective Vital Signs: Vital Signs Temperature 98.6 F 11/25/17 06:00 Pulse Rate 87 11/25/17 06:00 Respiratory Rate 20 11/25/17 06:00 Blood Pressure 147/97 11/25/17 06:00 O2 Sat by Pulse Oximetry (%) 94 L 11/24/17 21:00 Neurological: Yes: WNL Labs: CBCD WBC 8.2 K/mm3 (4.0-10.0) 11/19/17 15:55 RBC 4.13 M/mm3 (3.60-5.2) 11/19/17 15:55 Hgb 12.2 GM/dL (10.7-15.3) 11/19/17 15:55 Hct 35.4 % (32.4-45.2) 11/19/17 15:55 MCV 85.8 fl (80-96) 11/19/17 15:55 MCHC 34.4 g/dl (32.0-36.0) 11/19/17 15:55 RDW 14.3 % (11.6-15.6) 11/19/17 15:55 Plt Count 292 K/MM3 (134-434) 11/19/17 15:55 MPV 7.7 fl (7.5-11.1) 11/19/17 15:55 CMP Sodium 140 mmol/L (136-145) 11/21/17 07:00 Potassium 4.3 mmol/L (3.5-5.1) 11/21/17 07:00 Chloride 103 mmol/L (98-107) 11/21/17 07:00 Carbon Dioxide 29 mmol/L (21-32) 11/21/17 07:00 Anion Gap 8 (8-16) 11/21/17 07:00 BUN 16 mg/dL (7-18) 11/21/17 07:00 Creatinine 0.7 mg/dL (0.55-1.02) 11/21/17 07:00 Creat Clearance w eGFR > 60 (>60) 11/21/17 07:00 Calcium 8.8 mg/dL (8.5-10.1) 11/21/17 07:00 Total Bilirubin 0.5 mg/dL (0.2-1.0) 11/21/17 07:00 AST 12 U/L (15-37) L 11/21/17 07:00 ALT 18 U/L (12-78) 11/21/17 07:00 Alkaline Phosphatase 76 U/L (45-117) 11/21/17 07:00 Total Protein 7.4 g/dl (6.4-8.2) 11/21/17 07:00 Albumin 3.9 g/dl (3.4-5.0) 11/21/17 07:00 Problem List - Problems (1) Chronic migraine without aura, intractable, with status migrainosus Code(s): G43.711 - CHRONIC MIGRAINE W/O AURA, INTRACTABLE, W STATUS MIGRAINOSUS (2) Migraine with aura Code(s): G43.109 - MIGRAINE WITH AURA, NOT INTRACTABLE, W/O STATUS MIGRAINOSUS Assessment/Plan r/o trigeminal autonomic cephalgia or hemicrania continua vs chronic migraine. - with underlying rebound HILL from tramadol overuse tramadol has discontinued. cont decadron and depacon. switched compazine to REGLAN and redosed magnesium for AM; encouraged her that she may have to managed as outpt after tomorrow; Dr Collins Problem List - Problems (1) Paroxysmal hemicrania, chronic Code(s): G44.049 - CHRONIC PAROXYSMAL HEMICRANIA, NOT INTRACTABLE
--- NOTE | 2017-11-25 13:20 | PN ---
Progress Note (short form) - Note Progress Note: C/o having 10/10 pain behind right eye for 3 days, nausea, dry heaves Followed by neurology. Vital Signs Temp 98.6 F 11/25/17 06:00 Pulse 87 11/25/17 06:00 Resp 20 11/25/17 06:00 BP 147/97 11/25/17 06:00 Pulse Ox 94 L 11/24/17 21:00 Intake & Output 11/24/17 11/25/17 11/25/17 23:59 11:59 23:59 Intake Total 300 250 Balance 300 250 Intake: IVPB 300 Oral 250 Other: Voiding Method Toilet Toilet Neck-no JVD Lungs are Clear Heart S1S2 regular Abdomen soft, NT +external hemorrhoids Current Active Problems Problem Status Onset Chronic migraine without aura, intractable, with status migrainosus Acute HTN (hypertension) Acute Headache Acute Migraine with aura Acute Plan Continue IV steroids, Magnesium, Neurology f/u. Problem List - Problems (1) Headache Code(s): R51 - HEADACHE Qualifiers: Headache type: paroxysmal hemicrania Headache chronicity pattern: unspecified pattern Intractability: intractable Qualified Code(s): G44.031 - Episodic paroxysmal hemicrania, intractable (2) HTN (hypertension) Code(s): I10 - ESSENTIAL (PRIMARY) HYPERTENSION Qualifiers: Hypertension type: essential hypertension Qualified Code(s): I10 - Essential (primary) hypertension (3) Chronic migraine without aura, intractable, with status migrainosus Code(s): G43.711 - CHRONIC MIGRAINE W/O AURA, INTRACTABLE, W STATUS MIGRAINOSUS
[2017-11-25] MEDS ORDERED: NAPROXEN 500 MG TABLET (FP) PO PRN (13:22)
[2017-11-25] MEDS ORDERED: PROCHLORPERAZINE INJECTION 10 MG/2 ML VIAL IVPB PRN (13:25)
[2017-11-25] MEDS ORDERED: PT OWN MED DRAWER 7, Y5N ONE ×2 (14:50→20:30)
[2017-11-25] MEDS ORDERED: METOCLOPRAMIDE HCL INJECTION 10 MG/2 ML VIAL IVPUSH PRN (17:27)
[2017-11-25] MEDS ORDERED: MAGNESIUM 1GM/D5W - 1 GM/100 ML IVPB IVPB ONE (17:45)
[2017-11-25] MEDS: ATORVASTATIN CA 10 MG TABLET (FP) PO SCH (22:14)
[2017-11-25] MEDS: clonazePAM 0.5 MG TABLET PO SCH (22:15)
[2017-11-25] MEDS: HYDROCORTISONE ACETATE 25 MG/SUPP.RECT RC SCH (22:16)
[2017-11-26] MEDS ORDERED: PT OWN MED DRAWER 7, Y5N ONE ×2 (04:32→09:16)
[2017-11-26 07:10] VITALS: PULSE 80
--- NOTE | 2017-11-26 08:39 | PN ---
Progress Note (short form) - Note Progress Note: Patient reports that her right hemicranial HILL and right retroorbital pain becomes more tolerable, wants to go home Vital Signs Temp 98.1 F 11/26/17 06:00 Pulse 80 11/26/17 06:00 Resp 20 11/26/17 06:00 BP 143/88 11/26/17 06:00 Pulse Ox 97 11/25/17 09:00 Intake & Output 11/25/17 11/25/17 11/26/17 11:59 23:59 11:59 Intake Total 250 450 Balance 250 450 Intake: IVPB 100 Oral 250 350 Other: Voiding Method Toilet Toilet Toilet # Unmeasured Voids Void 5 3 Bowel Movement Yes # Bowel Movements 3 Awake, alert Neck-no JVD Ambulates in the room.. Lungs are Clear heart S1S2 regular Abdomen soft, NT Ext-no CCE Current Active Problems Problem Status Onset Chronic migraine without aura, intractable, with status migrainosus Acute HTN (hypertension) Acute Headache Acute Migraine with aura Acute Plan D/C Steroids D/C home Continue NSAIDS for HILL Neurology f/u as out pt Will follow in the office BP control. Problem List - Problems (1) Headache Code(s): R51 - HEADACHE Qualifiers: Headache type: paroxysmal hemicrania Headache chronicity pattern: unspecified pattern Intractability: intractable Qualified Code(s): G44.031 - Episodic paroxysmal hemicrania, intractable (2) HTN (hypertension) Code(s): I10 - ESSENTIAL (PRIMARY) HYPERTENSION Qualifiers: Hypertension type: essential hypertension Qualified Code(s): I10 - Essential (primary) hypertension (3) Chronic migraine without aura, intractable, with status migrainosus Code(s): G43.711 - CHRONIC MIGRAINE W/O AURA, INTRACTABLE, W STATUS MIGRAINOSUS
--- NOTE | 2017-11-26 08:41 | DS ---
Physical Examination Vital Signs: Vital Signs Temperature 98.1 F 11/26/17 06:00 Pulse Rate 80 11/26/17 06:00 Respiratory Rate 20 11/26/17 06:00 Blood Pressure 143/88 11/26/17 06:00 O2 Sat by Pulse Oximetry (%) 97 11/25/17 09:00 Constitutional: Yes: No Distress, Calm Eyes: Yes: Conjunctiva Clear, EOM Intact HENT: Yes: Atraumatic, Normocephalic Neck: Yes: Supple, Trachea Midline Cardiovascular: Yes: Regular Rate and Rhythm. No: Bradycardia Respiratory: Yes: Regular, CTA Bilaterally Gastrointestinal: Yes: Normal Bowel Sounds, Soft ...Rectal Exam: Yes: Deferred Renal/: No: Anuria Breast(s): Yes: WNL Musculoskeletal: Yes: WNL Extremities: Yes: WNL Edema: No Peripheral Pulses WNL: Yes Integumentary: Yes: WNL Neurological: Yes: Alert, Oriented, Cran Nerves II-XII Intact. No: Aphasia, Asterixis, Ataxia, Dysarthria, Lethargy, Paresthesia, Pre-Existing Deficit, Seizure, Tremors, Unresponsive, Unsteady Gait, Weakness ...Motor Strength: WNL Psychiatric: Yes: Alert, Oriented. No: Agitated Labs: CBC, BMP 11/19/17 15:55 11/21/17 07:00 Discharge Summary Reason For Visit: Migraine ith status Current Active Problems Chronic migraine without aura, intractable, with status migrainosus (Acute) HTN (hypertension) (Acute) Headache (Acute) Migraine with aura (Acute) - Instructions Referrals: Billy Zepeda MD [Primary Care Provider] - Disposition: HOME - Home Medications Comprehensive Discharge Medication List: Ambulatory Orders Indomethacin [Indomethacin ER] 75 mg PO TID 11/19/17 Omeprazole 20 mg PO DAILY 11/19/17 Sertraline HCl 100 mg PO DAILY 11/19/17 Simvastatin 20 mg PO DAILY 11/19/17 Verapamil HCl [Verapamil ER] 240 mg PO DAILY 11/19/17
[2017-11-26] MEDS: VERAPAMIL HCL 240 MG E.R. TABLET (FP) PO SCH (09:16)
[2017-11-26] MEDS: SERTRALINE HCL 50 MG TABLET (FP) PO SCH (09:16)
[2017-11-26] MEDS: DEXAMETHASONE SOD PHOSPHATE 4 MG/1 ML VIAL IVPB SCH (09:17)
[2017-11-26] MEDS: HYDROCORTISONE ACETATE 25 MG/SUPP.RECT RC SCH (09:17)
[2017-11-26] MEDS: PANTOPRAZOLE 40 MG TABLET (FP) PO SCH (09:17)
[2017-11-26] MEDS: TRIAMTERENE AND HCTZ - 37.5 MG/25 MG CAPSULE PO SCH (09:18)
[2017-11-26] MEDS: VALPROATE SODIUM 500 MG/5 ML VIAL IVPB SCH (09:18)
[2017-11-26] MEDS: POLYETHYLENE GLYCOL 3350 119 GM BTL PO SCH (09:33)
[2017-11-26 11:08] VITALS: BP 131/90; TEMP 98.9
== END 2017-11-26 11:42 | disposition home or self-care (01) | DRG 103 ==
LOC: JER 13:40 → JERBED 16:20 → OBSVTOIN 16:58 → J8W 19:25
PROVIDERS: ADMIT Internal Medicine; ATTEND Internal Medicine
DX: G44.049 Chronic paroxysmal hemicrania, not intractable (principal); K21.9 Gastro-esophageal reflux disease without esophagitis; F41.9 Anxiety disorder, unspecified; I10 Essential (primary) hypertension; G43.711 Chronic migraine without aura, intractable, with status migrainosus
CPT/HCPCS: 36415; 70551-TC; 80053; 81003; 85025; 85651; 86140; 87086; 93005; 93010; 99282-25; G0378; J7030

== ENCOUNTER 2019-02-08 07:26 | Day surgery (SDC) | payer OTHER, MEDICARE | END 2019-02-08 12:50 | disposition home or self-care (01) | LOC: JASU-SURG 07:26 ==

== ENCOUNTER 2019-02-22 12:03 | Day surgery (SDC) | payer OTHER, MEDICARE | END 2019-02-22 16:20 | disposition home or self-care (01) | LOC: JASU-SURG 12:03 ==

== ENCOUNTER 2020-05-29 04:42 | Day surgery (SDC) | payer OTHER, MEDICARE ==
[2020-05-28 10:07] VITALS: BMI 31.8
--- OUTSIDE RECORDS SUMMARY | 2020-05-29 04:45 | XMS ---
:1945 Author Organization [facility] Support Name Relationship Address Phone RE, RETIRED Unavailable Unavailable Unavailable CEDRIC SAMANIEGO FAMILY/OTHER [address] [facility] [place] [address] RE Unavailable Unavailable Unavailable JESIKA ROCA [address] [place] [address] Re-disclosure Warning The records that you are about to access may contain information from federally- assisted alcohol or drug abuse programs. If such information is present, then the following federally mandated warning applies: This information has been disclosed to you from records protected by federal confidentiality rules (42 CFR part 2). The federal rules prohibit you from making any further disclosure of this information unless further disclosure is expressly permitted by the written consent of the person to whom it pertains or as otherwise permitted by 42 CFR part 2. A general authorization for the release of medical or other information is NOT sufficient for this purpose. The Federal rules restrict any use of the information to criminally investigate or prosecute any alcohol or drug abuse patient.The records that you are about to access may contain highly sensitive health information, the redisclosure of which is protected by Article 27-F of the [place] [facility] law. If you continue you may haveaccess to information: Regarding HIV / AIDS; Provided by facilities licensed or operated by the [place] Office of Mental [facility]; or Provided by the [place] Office for People With Developmental Disabilities. If such information is present, then the following [place] mandated warning applies: This information has been disclosed to you from confidential records which are protected by state law. State law prohibits you from making any further disclosure of this information without the specific written consent of the person to whom it pertains, or as otherwise permitted by law. Any unauthorized further disclosure in violation of state law may result in a fine or halfway sentence or both. A general authorization for the release of medical or other information is NOT sufficient authorization for further disclosure. Insurance Providers Payer name Policy type Policy ID Covered Covered constitution party's Policy P ivette / Coverage constitution party ID relationship to Hanna Inf ormation type hanna [facility] [id number] [employer] MEDICARE [id number] S [id number] [facility] [id number] [employer] MEDICARE [id number] A [facility] [id number] [employer] MEDICARE [id number] A AARP MEDICARE [id number] [place] [id number] 1 [id number] PART B DOWNSTATE Results ID Date Data Source [id number] 05/24/2020 01:25:00 PM EDT [facility] Name Value Range Interpretation Description Data Sup porting Code Source(s) Document(s ) SARS [facility] coronavirus 2 RNA This lab was ordered by [facility] and reported by [facility]. Procedure
[2020-05-29] MEDS ORDERED: PROPOFOL 20 ML ONE (13:12)
[2020-05-29] MEDS ORDERED: MIDAZOLAM HCL 2 MG/2 ML SINGLE DOSE VIAL ONE (13:12)
[2020-05-29] MEDS ORDERED: ceFAZolin SODIUM 1 GM VIAL ONE (13:35)
[2020-05-29] MEDS ORDERED: ceFAZolin SODIUM 1 GM VIAL IVPB ONE (13:35)
[2020-05-29] MEDS ORDERED: LIDOCAINE HCL/PF 2% SDV 5ML VIAL ONE (13:35)
[2020-05-29] MEDS ORDERED: KETOROLAC TROMETHAMINE 30 MG/1 ML VIAL ONE (13:41)
--- NOTE | 2020-05-29 14:08 | OP ---
Operative Note - Note: Operative Date: 05/29/20 Pre-Operative Diagnosis: Left Renal colic, Left Renal Calculus Operation: Left ESWL Findings: 3-4 mm left shakila calculus in the lower pole Post-Operative Diagnosis: Same as Pre-op Surgeon: Riki Johnson Anesthesia: General Operative Report Dictated: Yes
--- NOTE | 2020-05-29 16:13 | OP ---
DATE OF OPERATION: 05/29/2020 SURGEON: Riki Johnson MD ANESTHESIA: General. PREOPERATIVE DIAGNOSIS: Left renal calculus. POSTOPERATIVE DIAGNOSIS: Left renal calculus. PROCEDURE: Extracorporeal shock wave lithotripsy left renal calculus. FINDINGS: A 3- to 4-mm calculus noted, identified in the lower pole of the left kidney. PROCEDURE: Patient in supine position with the left flank up was prepped and draped in the usual manner. The vocational rehabilitation technician identified the calculus and ESWL was carried out, 2500 shocks given to the stone and good resolution of the calculus noted. Patient tolerated the procedure well and left the operating room in a satisfactory condition. Walt ABURTO/[id number]
[2020-05-29 16:16] VITALS: BP 141/75; PULSE 64; TEMP 97.8
== END 2020-05-29 15:20 | disposition home or self-care (01) ==
LOC: JASU-SURG 04:42
PROVIDERS: ATTEND Urology
PROC: 0TF4XZZ Fragmentation in Left Kidney Pelvis, External Approach (ICD-10-PCS; principal; 2020-05-29 13:00)
DX: N20.0 Calculus of kidney (principal)

== ENCOUNTER 2020-07-17 11:40 | Emergency (ER) | payer OTHER, MEDICARE ==
[2020-07-17 12:09] VITALS: BMI 31.8
[2020-07-17 14:05] LABS: BASO % 0.5 % (0-2.0); EOS % 0.6 % (0-4.5); HEMOGLOBIN 11.3 GM/dL (10.7-15.3); LYMPH % 13.8 % (8-40); MCHC 33.2 g/dl (32.0-36.0); MEAN CELL VOLUME 90.4 fl (80-96); MEAN PLT VOLUME 7.4 fl (7.5-11.1); MONO % 8.4 % (3.8-10.2); NEUT % 76.7 % (42.8-82.8); PLATELET COUNT 200 K/MM3 (134-434); RBC 3.77 M/mm3 (3.60-5.2); RDW 13.6 % (11.6-15.6); WHITE BLOOD COUNT 8.1 K/mm3 (4.0-10.0)
[2020-07-17 14:25] LABS: POTASSIUM 3.8 mmol/L (3.5-5.1)
[2020-07-17 14:26] LABS: BLOOD UREA NITROGEN 21.5 mg/dL (7-18); CALCIUM 8.5 mg/dL (8.5-10.1)
[2020-07-17 14:30] LABS: CREATININE 0.7 mg/dL (0.55-1.3)
[2020-07-17 18:09] VITALS: BP 136/80; PULSE 68; TEMP 97.9
== END 2020-07-17 18:10 | disposition home or self-care (01) ==
LOC: JER 11:40
DX: M79.671 Pain in right foot (principal); M54.5 Low back pain; R51.9 Headache, unspecified
CPT/HCPCS: 36415; 70450-TC; 71260-TC; 72125-TC; 73630-TC-RT-FY; 74177-TC; 80048; 85025; 99285-25; Q9967